=== PATIENT | female | born 1945 | race Caucasian/White ===

== ENCOUNTER 2021-07-05 10:19 | Emergency (ER) | payer OTHER, MEDICARE ==
[2021-07-05] MEDS ORDERED: Boostrix 0.5 ML (Tdap) VIAL ONE (12:18)
== END 2021-07-05 12:31 | disposition home or self-care (01) ==
LOC: ERS 10:19
DX: S51.851A Open bite of right forearm, initial encounter (principal); W54.0XXA Bitten by dog, initial encounter; Z23 Encounter for immunization
CPT/HCPCS: 90471; 90715; 99283

== ENCOUNTER 2021-09-18 08:37 | Outpatient (CLI) | payer MEDICARE | END 2021-09-18 08:38 | disposition home or self-care (01) | LOC: SCSMRI 08:37 | PROVIDERS: ATTEND Family Medicine | DX: G31.84 Mild cognitive impairment of uncertain or unknown etiology (principal) | CPT/HCPCS: 70551 ==